=== PATIENT | male | born 2000 | race Caucasian/White ===

== ENCOUNTER 2020-03-01 23:05 | Emergency (ER) | payer OTHER, SELFPAY ==
--- NOTE | ~2020-03-01 | XR_ITS ---
EXAMINATION: XR knee RT 3V DATE: 03/01/2020 23:43 INDICATION: Right knee injury and pain. TECHNIQUE: 3 views of right knee on 4 radiographs were obtained. COMPARISON: None. FINDINGS: Bone alignment is normal. No fracture. Joint spaces are normal. There is a small knee joint effusion with 2 mm loose body. IMPRESSION: 1. Small knee joint effusion with 2 mm loose body. Reviewed, dictated and finalized at location A. ANALYST
[2020-03-01 23:10] VITALS: BP 128/74; PULSE 88; RESP 16; TEMP 36.8; O2SAT 98
--- NOTE | 2020-03-01 23:40 | ED.LOWEXIN ---
HPI - Extremity Injury (Lower) General Chief Complaint: Extremity Injury, Lower Stated Complaint: injury to right knee Time Seen by Provider: 03/01/20 23:15 Source: patient Limitations: no limitations History of Present Illness HPI Narrative: Patient is a 19-year-old male complaining of right knee pain after he twisted it while stepping off a forklift. Patient denies any other pain or injury. Severity scale (1-10): 8 Relieving factors: nothing Exacerbating factors: weight bearing, movement and palpation Related Data Allergies Allergy/AdvReac Type Severity Reaction Status Date / Time No Known Allergies Allergy Unverified 03/01/20 23:13 Review of Systems Review of Systems: All systems reviewed & are unremarkable except as noted in HPI and below Constitutional: Constitutional: Denies fever(s) and Denies weakness Cardiovascular: Cardiovascular: Denies chest pain Respiratory: Respiratory: Reports no additional respiratory complaints and Denies dyspnea Musculoskeletal: Musculoskeletal: Denies back pain Neurologic: Denies numbness and Denies weakness Exam Const: General: cooperative, healthy appearing, comfortable, no acute distress, well developed, alert and awake; No confusion Orientation/consciousness: oriented to person, oriented to place, oriented to time, patient oriented x3 and No confusion Limitations: no limitations HENMT: Head: normal to inspection, normocephalic and atraumatic Ears: hearing grossly normal bilaterally General nose exam: Normal external nose present, Normal nares present and No nasal discharge present Face and sinus: normal facial exam Mouth: Yes Normal oral and palatal mucosa present and Yes lip normal Eyes: General: appearance normal, both eyes and all related structures Pupils: Equal, round and reactive pupils present EOM: EOMs intact bilaterally Neck: Neck: normal visual inspection, full ROM, no lymphadenopathy and no meningeal signs Resp: Effort & Inspection: normal respiratory effort, able to speak in complete sentences, no respiratory distress and not tachypneic GI: GI Palp: No Rebound tenderness present Skin: General skin exam: normal color, no rashes or lesions noted, elasticity normal and turgor normal Neuro: General: oriented to person, oriented to place, oriented to time, patient oriented x3, tone normal, moves all extremities, Normal light touch and pain sensation and No confusion Speech: No Abnormal speech present Sensory Exam: No Sensory deficit (Neuro) Extrem: General: full ROM and capillary refill normal Other: Negative for any significant knee deformity. Right knee swelling. Pain on range of motion of the right knee. Pain on palpation of the right knee. Neurovascularly intact bilateral lower extremity Psych: Appearance: grossly normal and well kempt Mental Status: mental status grossly normal Speech and movement: Normal speech and movement present Affect: normal affect Attitude: cooperative Thought process: Normal thought process present Thought content: Yes Normal thought content present Insight: Good insight present (Psych) Judgement: Good judgement present (Psych) Course Vital Signs Vital signs: Vital Signs Temperature 36.8 C 03/01/20 23:10 Pulse Rate 88 03/01/20 23:10 Respiratory Rate 16 03/01/20 23:10 Blood Pressure 128/74 03/01/20 23:10 Pulse Oximetry 98 03/01/20 23:10 Temperature 36.8 C 03/01/20 23:10 Pulse Rate 88 03/01/20 23:10 Respiratory Rate 16 03/01/20 23:10 Blood Pressure 128/74 03/01/20 23:10 Pulse Oximetry 98 03/01/20 23:10 MDM - Extremity Injury (Lower) Differential Diagnosis Differential diagnosis: Likely other (strain, sprain, cartilage tear, meniscus injury, fracture) Imaging Data Attestation: I personally reviewed and interpreted this imaging study as follows: Discharge Plan Discharge Clinical Impression: Right knee sprain Qualifiers: Encounter type: initial encounter Involved ligament
[2020-03-02 00:20] VITALS: BP 121/76; PULSE 78; RESP 16; TEMP 36.8; O2SAT 99
--- NOTE | 2020-03-02 00:20 | PC.NURSE ---
knee immobilizer placed on right knee as ordered, pt yi well.
== END 2020-03-02 00:21 | disposition home or self-care (01) ==
PROVIDERS: Emergency Provider Emergency Medicine
DX: S83.91XA Sprain of unspecified site of right knee, initial encounter (principal); X50.1XXA Overexertion from prolonged static or awkward postures, initial encounter
CPT/HCPCS: 73562; 99283